=== PATIENT | female | born 1960 | race Caucasian/White ===

== ENCOUNTER 2016-08-16 05:51 | Day surgery (SDC) | payer MEDICARE, OTHER ==
[2016-08-16] MEDS ORDERED: Dexamethasone 4 MG/ML SDV ONE (06:47)
[2016-08-16] MEDS ORDERED: fentaNYL 250 MCG/5 ML SDV ONE (06:47)
[2016-08-16] MEDS ORDERED: Neostigmine Methylsulfate 1 MG/ML 5 ML Syringe ONE (06:47)
[2016-08-16] MEDS ORDERED: Ondansetron 4 MG/2 ML SDV ONE (06:47)
[2016-08-16] MEDS ORDERED: Rocuronium 50 MG/5 ML Vial ONE (06:47)
[2016-08-16] MEDS ORDERED: Propofol 200 MG/20 ML SDV ONE (06:47)
[2016-08-16] MEDS ORDERED: Dextrose 5%-Lactated Ringers 1,000 ML IV SCH (07:00)
[2016-08-16] MEDS ORDERED: Bupivacaine 0.5%/EPINEPHrine 1:200,000 50 ML MDV ONE (07:16)
[2016-08-16] MEDS ORDERED: Meperidine 300 MG/30 ML PCA Vial IV PRN (07:20)
[2016-08-16] MEDS ORDERED: Naloxone 0.4 MG/ML SDV IV PRN (07:24)
[2016-08-16] MEDS ORDERED: cefOXitin 2 GM in Sodium Chloride 0.9% 50 ML IV ONE (08:00)
[2016-08-16] MEDS ORDERED: Scopolamine 1.5 MG Transdermal Patch ONE (08:46)
[2016-08-16] MEDS ORDERED: Acetaminophen/HYDROcodone 325-5 MG Tab PO PRN (11:00)
[2016-08-16] MEDS: Ondansetron 4 MG/2 ML SDV IVPUSH PRN ×3 (11:14→19:43)
[2016-08-16] MEDS ORDERED: Pantoprazole 40 MG Vial IVPUSH SCH (12:00)
[2016-08-16] MEDS: cefOXitin 2 GM in Sodium Chloride 0.9% 50 ML IV SCH ×2 (14:57→19:45)
[2016-08-16] MEDS: VERIFY SCOP PATCH TOP SCH (14:57)
[2016-08-16] MEDS: Dextrose 5%-Lactated Ringers 1,000 ML IV SCH (19:02)
[2016-08-17] MEDS: Dextrose 5%-Lactated Ringers 1,000 ML IV SCH (03:38)
[2016-08-17] MEDS: VERIFY SCOP PATCH TOP SCH (08:10)
[2016-08-17 10:00] VITALS: BP 120/69
--- NOTE | 2016-08-18 12:57 | DISCH ---
FINAL DIAGNOSES: 1. Biliary dyskinesia, associated with multiple small stones. 2. 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 3. Bariatric surgery status. 4. Fibromyalgia. 5. Hypothyroidism. OPERATIVE PROCEDURE: This was done on 08/16; laparoscopic cholecystectomy with repair of deserosalized portion of the duodenum. HOSPITAL COURSE: This is a 55-year-old, presenting with some ongoing right upper quadrant pain and nausea. The patient was noted to have a CCK-stimulated HIDA scan, which caused marked reproduction of her symptoms and was associated with an ejection fraction of only around 18%. Given this, the patient underwent a laparoscopic cholecystectomy on 08/16/2016. The gallbladder was actually quite inflamed with there being adherence of the omentum as well as chronic inflammatory adherence to the duodenum. The cholecystectomy was performed. There was essentially effusion of the gallbladder and duodenal serosa over a length of around 2 cm, and the deserosalization of the duodenum was repaired with some sutures and fibrin sealant. Postoperatively, the patient has done well. She is tolerating [place] for pain, and she received some additional [place], #40 of the 5/325 tablets at the time of discharge. She will be following up with Ariana Arellano PA-C at [facility] on 08/27/2016.
--- NOTE | 2016-08-19 14:58 | OR ---
DATE OF PROCEDURE: 08/16/2016 PREOPERATIVE DIAGNOSIS: Biliary dyskinesia. POSTOPERATIVE DIAGNOSES: 1. Biliary dyskinesia associated with multiple small stones. 2. Marked chronic inflammation with inflammatory adherence of gallbladder to duodenum. OPERATIVE PROCEDURE: Diagnostic laparoscopy with: 1. Laparoscopic cholecystectomy (52205). 2. Repair of the deserosalized portion of the duodenum (07678). ANESTHESIA: General. OPERATIONS AND MAINTENANCE MANAGER: Ariana Arellano PA-C. INDICATIONS: This is a 55-year-old presenting with ongoing episodes of right upper quadrant pain. Recent HIDA scan with stimulation by means of some ingested cream was markedly abnormal with a low ejection fraction at 18%, and a striking reproduction of the patient's pain and nausea. Given this, she is to undergo a cholecystectomy. Potential risks of the procedure including bleeding, infection, injury to underlying viscera such as common bile duct, possible persistent or recurrent symptoms over time were all reviewed, and the patient wishes to proceed. DETAILS OF PROCEDURE: The patient was taken to the operating room and placed in a supine position. After general endotracheal anesthesia was induced, the abdomen was prepped and draped, a transverse epigastric incision was made. The peritoneal cavity was entered under direct vision with Optiview trocar and inflated to 15 mmHg pressure with CO2. Laparoscope was reinserted. No underlying trocar insertion site injuries were seen. Following this, a 10 mm subumbilical trocar was placed along with a 5 mm right upper quadrant trocar. The abdomen was examined. The patient was noted to have some adhesions between the omentum and quite dense inflammatory adherence of the gallbladder neck to the duodenum. Initially, some omental adhesions were taken down with Harmonic scalpel as one dissected away the duodenum and adhesions in the area of serosa of the duodenum and gallbladder at that location were essentially fused. Upon its division, there was significant deserosalization of the duodenum. At this point, the dissection of gallbladder continued downward onto the gallbladder neck and cystic duct junction. Once that area was well delineated as was the cystic artery, both structures were clipped 3 times proximally and once distally, and gallbladder neck and cystic duct junction divided and the gallbladder dissected off the gallbladder bed using Harmonic scalpel and delivered through the upper midline port. It was noted to contain multiple tiny stones within it. The area of deserosalization of the duodenum was then addressed. This was repaired with three sutures of 3-0 Vicryl stitch placed in seromuscular plane and then reinforced with fibrin sealant with the omentum then being placed over the fibrin sealant and a seal was evolved with no further problems noted. Trocars were removed and the peritoneal cavity deflated. The fascia at the midline sites was closed with 0 Vicryl stitch and the skin was closed with 4-0 Vicryl skin stitch. Dressing applied. The patient was taken to the recovery room in satisfactory condition. Physician kennel assistant, Ariana Arellano, played an essential role in assisting in this case, helping to position the patient, to retract structures as needed, as well as suturing and cutting sutures as indicated. Her presence improved the patient's safety and decreased operative time. Isiah Hutton MD /[id number]
== END 2016-08-17 10:14 | disposition home or self-care (01) ==
LOC: JP.SDS 05:51 → JP.2SS 09:50 → JP.SDS 08-17 10:14
PROVIDERS: ATTEND Surgery
DX: K80.10 Calculus of gallbladder with chronic cholecystitis without obstruction (principal); E03.9 Hypothyroidism, unspecified; E78.00 Pure hypercholesterolemia, unspecified; F32.9 Major depressive disorder, single episode, unspecified; K21.9 Gastro-esophageal reflux disease without esophagitis; M79.7 Fibromyalgia; Z79.899 Other long term (current) drug therapy; Z98.84 Bariatric surgery status; Z88.8 Allergy status to other drugs, medicaments and biological substances; Z91.011 Allergy to milk products; E66.9 Obesity, unspecified; Z90.710 Acquired absence of both cervix and uterus; Z98.890 Other specified postprocedural states; E53.8 Deficiency of other specified B group vitamins
CPT/HCPCS: 36415; 43840; 47562; 82247; 84075; 85025; 88304; 94762; A9270; C9113; J0694; J1100; J2175; J2405; J2704; J3010; J7042; J7050